=== PATIENT | male | born 1950 | race Caucasian/White ===

== ENCOUNTER 2016-06-13 08:46 | Inpatient (IN) | payer BC ==
[~2016-06-13] VITALS: Ht 185.4 cm; Wt 125.9 kg
[2016-07-17] VITALS (11 sets, daily range): BP systolic 121–180; BP diastolic 70–90; PULSE 48–65; TEMP 98.3–98.7
[2016-07-17 06:12] LABS: HEMATOCRIT 44.2 % (42.0-52.0); HEMOGLOBIN 15.1 g/dl (13.5-18.0)
[2016-07-17] MEDS ORDERED: LIPITOR 80MG80 MG PO (07:08)
[2016-07-17] MEDS ORDERED: PRINZIDE 12.5 M1 TA1 PO (07:09)
[2016-07-17] MEDS ORDERED: TOPROL XL100 MG PO (07:09)
[2016-07-17] MEDS ORDERED: NAPROSYN500 MG PO (07:10)
[2016-07-17] MEDS ORDERED: MULTIPLE VITAMI1 CAP PO (07:10)
[2016-07-17] MEDS ORDERED: ASPIRIN 32325 MG/TAB PO (07:11)
[2016-07-17] MEDS ORDERED: VITAMINC1000TA PO (07:11)
[2016-07-17 11:04] LABS: BASO % 0.4 % (0.0-2.0); EOS % 0.2 % (0-4.0); GRAN # 7.2 (1.4-6.5); GRAN % 85.6 % (42.2-75.2); HEMATOCRIT 43.1 % (42.0-52.0); HEMOGLOBIN 14.8 g/dl (13.5-18.0); LYMPH # 0.9 (1.2-3.4); LYMPH % 10.5 % (20.0-51.0); MEAN CELL VOLUME 93 fl (80.0-100.0); MEAN CORPUSCULAR HEMOGLOBIN 32 pg (27.0-31.0); MEAN CORPUSCULAR HGB CONC 34 g/dl (33.0-37.0); MEAN PLATELET VOLUME 10.8 fl (7.4-10.4); MONO # 0.2 (0.1-0.6); MONO % 2.1 % (1.7-9.3); PLATELET COUNT 163 K/mm3 (130-400); RED BLOOD COUNT 4.66 M/mm3 (4.20-5.60); REDCELL DISTRIBUTION WIDTH-CV 13.3 % (11.5-14.5); WHITE BLOOD COUNT 8.4 K/mm3 (4.8-10.8)
[2016-07-17 11:21] LABS: CALCIUM 8.7 mg/dL (8.4-10.2); CREATININE, serum 1.31 mg/dL (0.66-1.25); POTASSIUM 4.2 mmol/L (3.4-5.0)
[2016-07-17 15:37] LABS: CALCIUM 8.7 mg/dL (8.4-10.2); CREATININE, serum 1.38 mg/dL (0.66-1.25)
[2016-07-18] VITALS (8 sets, daily range): BP systolic 116–193; BP diastolic 65–94; PULSE 43–65; TEMP 98.5–99
[2016-07-18 07:59] LABS: BASO % 0.2 % (0.0-2.0); EOS % 0.1 % (0-4.0); GRAN # 7.9 (1.4-6.5); GRAN % 80.2 % (42.2-75.2); HEMATOCRIT 39.5 % (42.0-52.0); HEMOGLOBIN 13.4 g/dl (13.5-18.0); LYMPH # 1.1 (1.2-3.4); MEAN CELL VOLUME 94 fl (80.0-100.0); MEAN CORPUSCULAR HEMOGLOBIN 32 pg (27.0-31.0); MEAN CORPUSCULAR HGB CONC 34 g/dl (33.0-37.0); MEAN PLATELET VOLUME 11.5 fl (7.4-10.4); MONO # 0.8 (0.1-0.6); PLATELET COUNT 170 K/mm3 (130-400); REDCELL DISTRIBUTION WIDTH-CV 13.8 % (11.5-14.5); WHITE BLOOD COUNT 9.8 K/mm3 (4.8-10.8)
[2016-07-19] VITALS (7 sets, daily range): BP systolic 151–203; BP diastolic 66–100; PULSE 52–58; TEMP 98.3–99.1
[2016-07-19 08:41] LABS: HEMATOCRIT 40.6 % (42.0-52.0); HEMOGLOBIN 13.6 g/dl (13.5-18.0); MEAN CELL VOLUME 94 fl (80.0-100.0); MEAN CORPUSCULAR HEMOGLOBIN 32 pg (27.0-31.0); MEAN CORPUSCULAR HGB CONC 34 g/dl (33.0-37.0); MEAN PLATELET VOLUME 10.9 fl (7.4-10.4); PLATELET COUNT 173 K/mm3 (130-400); RED BLOOD COUNT 4.31 M/mm3 (4.20-5.60); REDCELL DISTRIBUTION WIDTH-CV 13.6 % (11.5-14.5); WHITE BLOOD COUNT 8.5 K/mm3 (4.8-10.8)
[2016-07-19 08:49] LABS: CALCIUM 8.3 mg/dL (8.4-10.2); CREATININE, serum 1.61 mg/dL (0.66-1.25); POTASSIUM 4.6 mmol/L (3.4-5.0)
[2016-07-20 00:15] VITALS: BP 221/95
[2016-07-20 01:21] VITALS: BP 211/91; PULSE 61; TEMP 99
[2016-07-20 01:54] VITALS: BP 201/98
[2016-07-20 05:39] VITALS: BP 212/99; PULSE 66; TEMP 98.9
[2016-07-20 12:07] VITALS: BP 173/83; PULSE 64; TEMP 98
[2016-07-20] MEDS ORDERED: APRESOLINE50 MG PO (12:26)
[2016-07-20] MEDS ORDERED: NORVASC 10MG10 MG PO (12:26)
== END 2016-07-20 12:50 | disposition home or self-care (01) | DRG 660 ==
LOC: INPTSU 07-17 05:22 → SURG 07-17 05:22 → INPTSU 07-17 11:15 → SURG 07-17 11:25
PROVIDERS: Surgery; Urology
PROC: 8E0W4CZ Robotic Assisted Procedure of Trunk Region, Percutaneous Endoscopic Approach (ICD-10-PCS; 2016-07-17)
PROC: 0TT04ZZ Resection of Right Kidney, Percutaneous Endoscopic Approach (ICD-10-PCS; principal; 2016-07-17 07:30)
PROC: 0WQF4ZZ Repair Abdominal Wall, Percutaneous Endoscopic Approach (ICD-10-PCS; 2016-07-17 07:30)
PROC: 0FT44ZZ Resection of Gallbladder, Percutaneous Endoscopic Approach (ICD-10-PCS; 2016-07-17 07:30)
DX: N28.89 Other specified disorders of kidney and ureter (principal); K80.10 Calculus of gallbladder with chronic cholecystitis without obstruction; N17.9 Acute kidney failure, unspecified; K43.2 Incisional hernia without obstruction or gangrene; I16.0 Hypertensive urgency; I10 Essential (primary) hypertension; I25.10 Atherosclerotic heart disease of native coronary artery without angina pectoris; Z85.46 Personal history of malignant neoplasm of prostate; Z87.891 Personal history of nicotine dependence
CPT/HCPCS: 99223; 99232-AI; A4315; A9284; J0330; J0360; J1100; J1650; J2270; J2370; J2405; J2704; J2710; J3010; J7120

== ENCOUNTER 2017-11-21 10:54 | Day surgery (SDC) | payer MEDICARE, BC ==
[~2017-11-21] VITALS: Ht 185.4 cm; Wt 128.2 kg
[~2017-11-21 10:54] MED LIST: APRESOLINE50 MG PO; ASPIRIN 32325 MG/TAB PO; LIPITOR 80MG80 MG PO; MULTIPLE VITAMI1 CAP PO; NAPROSYN500 MG PO; NORVASC 10MG10 MG PO; PRINZIDE 12.5 M1 TA1 PO; TOPROL XL100 MG PO; VITAMINC1000TA PO
[2017-11-21 11:41] VITALS: BP 170/78; PULSE 55; TEMP 98.6
[2017-11-21] MEDS ORDERED: NAPROSYN500 MG PO (11:46)
[2017-11-21] MEDS ORDERED: APRESOLINE50 MG PO (11:47)
[2017-11-21] MEDS ORDERED: TURMERIC500 MG PO (11:48)
[2017-11-21] MEDS ORDERED: MAGNESIUM250 M1 PO (11:48)
[2017-11-21] MEDS ORDERED: ASPIRIN 32325 MG/TAB PO (11:49)
[2017-11-21] MEDS ORDERED: CIPRO 500MG TA500 MG PO (11:50)
[2017-11-21 14:00] VITALS: BP 129/67; PULSE 49; TEMP 98
[2017-11-21] MEDS ORDERED: PYRIDIUM 100MG100 MG (14:10)
[2017-11-21 14:15] VITALS: BP 133/75; PULSE 54
[2017-11-21 14:30] VITALS: BP 150/75; PULSE 50
== END 2017-11-21 14:58 | disposition home or self-care (01) ==
LOC: SDCO 10:54
DX: N30.80 Other cystitis without hematuria (principal); L92.8 Other granulomatous disorders of the skin and subcutaneous tissue; I25.2 Old myocardial infarction; E78.5 Hyperlipidemia, unspecified; I10 Essential (primary) hypertension; I25.119 Atherosclerotic heart disease of native coronary artery with unspecified angina pectoris; E66.01 Morbid (severe) obesity due to excess calories; M19.90 Unspecified osteoarthritis, unspecified site; Z90.79 Acquired absence of other genital organ(s); Z90.5 Acquired absence of kidney; Z95.5 Presence of coronary angioplasty implant and graft; Z79.82 Long term (current) use of aspirin; Z85.46 Personal history of malignant neoplasm of prostate; Z87.891 Personal history of nicotine dependence; Z80.8 Family history of malignant neoplasm of other organs or systems; Z80.51 Family history of malignant neoplasm of kidney; Z80.49 Family history of malignant neoplasm of other genital organs; Z82.49 Family history of ischemic heart disease and other diseases of the circulatory system; Z83.3 Family history of diabetes mellitus
CPT/HCPCS: C1769; J0690; J2405; J2704; J3010; J7120; Q9967

== ENCOUNTER 2018-02-25 07:42 | Day surgery (SDC) | payer MEDICARE, BC ==
[2018-02-25] VITALS (746 sets, daily range): BP systolic 129–189; BP diastolic 82–102; PULSE 45–58; TEMP 97.6–98.5; O2SAT 79–100
[~2018-02-25] VITALS: Ht 185.4 cm; Wt 131.9 kg
[~2018-02-25 07:42] MED LIST changes: +ASPIRIN 81M81 MG/TA2 PO; +CIPRO 500MG TA500 MG PO; +MAGNESIUM250 M1 PO; +PYRIDIUM 100MG100 MG; +TURMERIC500 MG PO; +VITAMIN C500 MG PO; -VITAMINC1000TA PO
[2018-02-25 08:37] LABS: HEMATOCRIT 42.7 % (42.0-52.0); HEMOGLOBIN 14.4 g/dl (13.5-18.0); MEAN CELL VOLUME 93 fl (80.0-100.0); MEAN CORPUSCULAR HEMOGLOBIN 31 pg (27.0-31.0); MEAN CORPUSCULAR HGB CONC 34 g/dl (33.0-37.0); MEAN PLATELET VOLUME 10.5 fl (7.4-10.4); PLATELET COUNT 174 K/mm3 (130-400); RED BLOOD COUNT 4.61 M/mm3 (4.20-5.60); REDCELL DISTRIBUTION WIDTH-CV 13.6 % (11.5-14.5)
[2018-02-25 08:43] LABS: INR 1.1 (0.8-3.0); PROTHROMBIN TIME 12.5 SECONDS (9.7-12.8)
[2018-02-25 08:49] LABS: CREATININE, serum 1.47 mg/dL (0.66-1.25); POTASSIUM 4.1 mmol/L (3.4-5.0)
[2018-02-25] MEDS ORDERED: ZESTRIL 20MG TA20 MG PO (09:06)
[2018-02-25] MEDS ORDERED: TYLENOL 500MG500 MG PO (09:06)
--- NOTE | 2018-02-25 09:41 | NUR ---
ALL MEDICATIONS GIVEN VIA VERBAL ORDER AND READBACK WITH MD. SEE MERGE FOR ALL ADMIN TIMES. POSITIVE DANIEL'S TEST IN THE RIGHT WRIST.
--- NOTE | 2018-02-25 10:30 | NUR ---
Report received from label paster pt to transfer to ICU
--- NOTE | 2018-02-25 14:30 | NUR ---
TR band removed from patient's right wrist. Site appears intact with small amounts of bruising. Band aid was placed to puncture site. Patient ambulated to the bathroom without difficulty. Patient's at bedside. He denies any further requests at this time.
--- NOTE | 2018-02-25 18:20 | NUR ---
PATIENT HAS DONE WELL TODAY. TR BAND WAS REMOVED AND RIGHT RADIAL SITE INTACT. DR. BATES STOPPED BY AND CHANGED UP HIS MEDICATIONS DUE TO HIS CURRENT BP AND HR. HE STATES THAT LONG HIS BP IS LESS THAN 200 SYSTOLIC AND HE IS NOT SYMPTOMATIC, HE IS NOT CONCERNED WITH HIS BP.
--- NOTE | 2018-02-25 19:05 | NUR ---
Bedside report received from NISH Hale. Patient care received. Resting in bed; no concerns or issues at this time.
--- NOTE | 2018-02-25 19:23 | NUR ---
Report given to NISH Mccracken.
--- NOTE | 2018-02-25 19:45 | NUR ---
Patient's 02 saturation noted to be intermittently dipping into the high 80's to low 90's on RA. 2L NC placed.
[2018-02-26] VITALS (545 sets, daily range): BP systolic 143–174; BP diastolic 75–92; PULSE 51–53; TEMP 98.2–98.4; O2SAT 83–99
--- NOTE | 2018-02-26 | NUR ---
Patient up to the bathroom independently; requires only assistance with detaching from monitors. No concerns at this time.
[2018-02-26 06:20] LABS: BASO % 0.2 % (0.0-2.0); EOS # 0.2 (0.0-0.7); EOS % 2.8 % (0-4.0); GRAN # 4.5 (1.4-6.5); GRAN % 69.3 % (42.2-75.2); HEMATOCRIT 41.3 % (42.0-52.0); HEMOGLOBIN 13.9 g/dl (13.5-18.0); LYMPH # 1.2 (1.2-3.4); LYMPH % 18.4 % (20.0-51.0); MEAN CELL VOLUME 95 fl (80.0-100.0); MEAN CORPUSCULAR HEMOGLOBIN 32 pg (27.0-31.0); MEAN CORPUSCULAR HGB CONC 34 g/dl (33.0-37.0); MEAN PLATELET VOLUME 10.1 fl (7.4-10.4); MONO # 0.6 (0.1-0.6); MONO % 8.8 % (1.7-9.3); PLATELET COUNT 158 K/mm3 (130-400); RED BLOOD COUNT 4.37 M/mm3 (4.20-5.60); REDCELL DISTRIBUTION WIDTH-CV 13.7 % (11.5-14.5)
[2018-02-26 06:32] LABS: CALCIUM 8.9 mg/dL (8.4-10.2); CREATININE, serum 1.42 mg/dL (0.66-1.25); POTASSIUM 4.5 mmol/L (3.4-5.0)
--- NOTE | 2018-02-26 07:07 | NUR ---
Bedside report given to Chata, Patient care transfered.
[2018-02-26] MEDS ORDERED: BRILINTA90 MG PO (07:09)
[2018-02-26] MEDS ORDERED: COREG 25MG25 MG/TAB PO (07:10)
--- NOTE | 2018-02-26 07:30 | NUR ---
RECEIVED REPORT AT BEDSIDE FROM NISH PRASAD.
--- NOTE | 2018-02-26 09:04 | NUR ---
Initial visit; Medical Services Manager introduced herself and let patient know of the availability of spiritual care. Patient declined, Medical Services Manager wished him a good recovery.
--- NOTE | 2018-02-26 10:54 | NUR ---
PT LEFT WITH ALL HIS BELONGINGS, ACCOMPANIED BY SPOUSE AND ESCORTED BY RN. PT AMBULATORY. ALL DISCHARGE INSTRUCTIONS AND MEDICATIONS DISCUSSED WITH PT AND SPOUSE, BOTH VERBALIZED UNDERSTANDING.
== END 2018-02-26 10:45 | disposition home or self-care (01) ==
LOC: COL.CAR 07:42 → ICU 10:45 → COL.CAR 02-26 10:45
PROVIDERS: Internal Medicine Cardiovascular Disease
DX: T82.855A Stenosis of coronary artery stent, initial encounter (principal); I25.10 Atherosclerotic heart disease of native coronary artery without angina pectoris; E78.5 Hyperlipidemia, unspecified; I12.9 Hypertensive chronic kidney disease with stage 1 through stage 4 chronic kidney disease, or unspecified chronic kidney disease; N18.9 Chronic kidney disease, unspecified; Z90.5 Acquired absence of kidney; Z90.79 Acquired absence of other genital organ(s); Z90.49 Acquired absence of other specified parts of digestive tract; Z79.82 Long term (current) use of aspirin; Z85.528 Personal history of other malignant neoplasm of kidney; Z85.46 Personal history of malignant neoplasm of prostate; Z87.891 Personal history of nicotine dependence
CPT/HCPCS: OP; J1644; J2250; J3010; J7030; Q9967

== ENCOUNTER 2018-02-27 09:32 | Emergency (ER) | payer MEDICARE, BC ==
[~2018-02-27] VITALS: Ht 185.4 cm; Wt 132.3 kg
[~2018-02-27 09:32] MED LIST changes: +BRILINTA90 MG PO; +COREG 25MG25 MG/TAB PO; +TYLENOL 500MG500 MG PO; +ZESTRIL 20MG TA20 MG PO
[2018-02-27 09:34] VITALS: TEMP 98
[2018-02-27 10:18] LABS: ALBUMIN 3.8 gm/dL (3.5-5.0); BILIRUBIN,TOTAL 1.9 mg/dL (0.0-1.0); CALCIUM 9.2 mg/dL (8.4-10.2); CREATININE, serum 1.5 mg/dL (0.66-1.25); POTASSIUM 4.2 mmol/L (3.4-5.0); TOTAL PROTEIN 6.8 gm/dL (6.4-8.2)
[2018-02-27 10:21] LABS: BASO % 0.1 % (0.0-2.0); EOS # 0.2 (0.0-0.7); EOS % 2.2 % (0-4.0); GRAN # 5.4 (1.4-6.5); GRAN % 75.1 % (42.2-75.2); HEMATOCRIT 42.5 % (42.0-52.0); HEMOGLOBIN 14.3 g/dl (13.5-18.0); LYMPH # 1.1 (1.2-3.4); LYMPH % 15.4 % (20.0-51.0); MEAN CELL VOLUME 93 fl (80.0-100.0); MEAN CORPUSCULAR HEMOGLOBIN 31 pg (27.0-31.0); MEAN CORPUSCULAR HGB CONC 34 g/dl (33.0-37.0); MEAN PLATELET VOLUME 10.4 fl (7.4-10.4); MONO # 0.5 (0.1-0.6); MONO % 6.9 % (1.7-9.3); PLATELET COUNT 190 K/mm3 (130-400); RED BLOOD COUNT 4.58 M/mm3 (4.20-5.60); REDCELL DISTRIBUTION WIDTH-CV 13.5 % (11.5-14.5)
[2018-02-27 10:46] VITALS: BP 130/81; PULSE 53
== END 2018-02-27 10:45 | disposition home or self-care (01) ==
LOC: COL.ER 09:32
PROVIDERS: Emergency Medicine
DX: R06.02 Shortness of breath (principal); I12.9 Hypertensive chronic kidney disease with stage 1 through stage 4 chronic kidney disease, or unspecified chronic kidney disease; N18.9 Chronic kidney disease, unspecified; I25.10 Atherosclerotic heart disease of native coronary artery without angina pectoris; F17.210 Nicotine dependence, cigarettes, uncomplicated; Z79.82 Long term (current) use of aspirin; Z95.9 Presence of cardiac and vascular implant and graft, unspecified

== ENCOUNTER 2020-05-31 09:00 | Day surgery (SDC) | payer MEDICARE ==
[~2020-05-31] VITALS: Ht 185.5 cm; Wt 129.0 kg
[2020-05-31] VITALS (11 sets, daily range): BP systolic 121–166; BP diastolic 57–82; PULSE 45–51; TEMP 98.2
[2020-05-31] MEDS ORDERED: ZESTRIL40 MG PO (10:14)
[2020-05-31 10:15] LABS: HEMATOCRIT 40.1 % (42.0-52.0); HEMOGLOBIN 14.1 g/dl (13.5-18.0); MEAN CELL VOLUME 92 fl (80.0-100.0); MEAN CORPUSCULAR HEMOGLOBIN 32 pg (27.0-31.0); MEAN CORPUSCULAR HGB CONC 35 g/dl (33.0-37.0); MEAN PLATELET VOLUME 10.6 fl (7.4-10.4); PLATELET COUNT 154 K/mm3 (130-400); RED BLOOD COUNT 4.37 M/mm3 (4.20-5.60); REDCELL DISTRIBUTION WIDTH-CV 13.4 % (11.5-14.5)
[2020-05-31] MEDS ORDERED: EPA FISH OIL1 SGL PO (10:16)
[2020-05-31] MEDS ORDERED: HYGROTON 2525 MG/TAB (10:17)
[2020-05-31 10:20] LABS: INR 1.1 (0.8-3.0); PROTHROMBIN TIME 11.8 SECONDS (9.7-12.8)
[2020-05-31 10:23] LABS: PARTIAL THROMBOPLASTIN TIME 31.5 SECONDS (26.0-37.0)
[2020-05-31 10:25] LABS: CALCIUM 9.4 mg/dL (8.4-10.2); CREATININE, serum 1.53 (0.66-1.25); POTASSIUM 3.9 mmol/L (3.4-5.0)
--- NOTE | 2020-05-31 10:54 | NUR ---
DR HAMM HERE TO SEE PT, NO MUCUOMIX TO BE GIVEN, FLUIDS AT 100CC/HR STARTED AND NO ADDITIONAL ASA SUPPLEMENT, PT TOOK 81 MG PO THIS MORNING.
--- NOTE | 2020-05-31 12:00 | NUR ---
pt to eu 11 via bed from experimental machining lab manager, pt is awake, in room. VSS. on Tele. radial band in place with syringe. call light in reach, takes water, no c/o
[2020-05-31] MEDS ORDERED: IMDUR 30MG30 MG/TAB PO (12:05)
--- NOTE | 2020-05-31 12:45 | NUR ---
pt rests in bed, ordered lunch, no c/o
--- NOTE | 2020-05-31 13:55 | NUR ---
pt sits up in bed after lunch, reviewed discharge inst. with pt and on care of site, activity, new RX to cook pickled meat at pharmacy, also called office for appt and left message for 2 weeks, reviewed precautions on site with pt with verbal understanding.
--- NOTE | 2020-05-31 14:00 | NUR ---
AIR RELEASED FROM BAND 2CC AT 1400, 2CC AT 1415, 2CC AT 1420, NO BLEEDING, PT UP TO B/R WITH ASSIST THEN BACK TO BED, HAD BLOOD INSIDE OF BAND BUT NO ACTIVE BLEEDING NOTED, BYPRODUCTS OPERATOR RN HERE TO HELP ASSESS AND CLEAN WRIST AREA, 4CC OF AIR INSERTED, WILL WAIT 30 MIN
--- NOTE | 2020-05-31 15:00 | NUR ---
2CC OF AIR RELEASED FROM BAND, 2CC RELEASED AT 1515 NO BLEEDING NOTED
--- NOTE | 2020-05-31 15:30 | NUR ---
AIR REMOVED 2CC EVERY 5-10 MIN AND BAND REMOVED WITH NO BLEEDING NO SWELLING TO AREA, BANDAID OVER SITE WITH COBAN. PT UP IN ROOM, IV D'CD INTACT.
--- NOTE | 2020-05-31 16:02 | NUR ---
PT DISCHARGED VIA W/C TO CAR WITH
== END 2020-05-31 16:02 | disposition home or self-care (01) ==
LOC: COL.CAR 09:00
PROVIDERS: Internal Medicine Cardiovascular Disease
DX: I25.10 Atherosclerotic heart disease of native coronary artery without angina pectoris (principal); I10 Essential (primary) hypertension; E78.5 Hyperlipidemia, unspecified; E11.9 Type 2 diabetes mellitus without complications; Z20.822 Contact with and (suspected) exposure to COVID-19; Z79.82 Long term (current) use of aspirin; Z79.899 Other long term (current) drug therapy; Z79.84 Long term (current) use of oral hypoglycemic drugs; Z79.02 Long term (current) use of antithrombotics/antiplatelets; Z85.46 Personal history of malignant neoplasm of prostate; Z85.53 Personal history of malignant neoplasm of renal pelvis; Z90.49 Acquired absence of other specified parts of digestive tract; Z90.79 Acquired absence of other genital organ(s)
CPT/HCPCS: C1769; C1887; J0153; J1644; J2250; J3010; J7030

== ENCOUNTER 2020-06-01 09:43 | Emergency (ER) | payer MEDICARE ==
[~2020-06-01] VITALS: Ht 185.4 cm; Wt 84.1 kg
[~2020-06-01 09:43] MED LIST changes: +EPA FISH OIL1 SGL PO; +HYGROTON 2525 MG/TAB; +IMDUR 30MG30 MG/TAB PO; +ZESTRIL40 MG PO
[2020-06-01 09:53] VITALS: TEMP 98.6
[2020-06-01 10:25] LABS: BASO % 0.4 % (0.0-2.0); EOS # 0.1 (0.0-0.7); HEMATOCRIT 40.9 % (42.0-52.0); LYMPH # 1.1 (1.2-3.4); LYMPH % 19.3 % (20.0-51.0); MEAN CELL VOLUME 94 fl (80.0-100.0); MEAN CORPUSCULAR HEMOGLOBIN 32 pg (27.0-31.0); MEAN CORPUSCULAR HGB CONC 34 g/dl (33.0-37.0); MEAN PLATELET VOLUME 10.7 fl (7.4-10.4); MONO # 0.3 (0.1-0.6); MONO % 5.9 % (1.7-9.3); PLATELET COUNT 170 K/mm3 (130-400); RED BLOOD COUNT 4.35 M/mm3 (4.20-5.60); REDCELL DISTRIBUTION WIDTH-CV 13.6 % (11.5-14.5)
[2020-06-01 10:31] LABS: CALCIUM 9.2 mg/dL (8.4-10.2); CREATININE, serum 1.55 (0.66-1.25)
[2020-06-01 12:30] VITALS: BP 134/71; PULSE 74
== END 2020-06-01 12:28 | disposition home or self-care (01) ==
LOC: COL.ER 09:43
PROVIDERS: Emergency Medicine
DX: R20.2 Paresthesia of skin (principal); Z87.891 Personal history of nicotine dependence; Z79.82 Long term (current) use of aspirin
CPT/HCPCS: Q9967